=== PATIENT | male | born 1965 | race Two or more races ===

== ENCOUNTER 2016-12-14 15:59 | Emergency (ER) | payer SELFPAY ==
[~2016-12-14] VITALS: Ht 170.2 cm; Wt 86.2 kg
[2016-12-14 16:00] VITALS: BP 128/84
== END 2016-12-14 17:03 | disposition home or self-care (01) ==
LOC: ER 16:00
DX: H66.91 Otitis media, unspecified, right ear (principal); J06.9 Acute upper respiratory infection, unspecified; H72.91 Unspecified perforation of tympanic membrane, right ear; F17.200 Nicotine dependence, unspecified, uncomplicated
CPT/HCPCS: 99283; A4606; Z7610